=== PATIENT | male | born 1980 | race Hispanic/Latino ===

== ENCOUNTER 2017-03-24 14:30 | Observation (INO) | payer OTHER ==
[2017-03-24] MEDS ORDERED: Sodium Chloride 0.9% 1,000 ML IV STA (15:10)
[2017-03-24] MEDS ORDERED: Naloxone 0.4 mg/ml Inj (Adult) IVP STA ×3 (15:10→18:05)
[2017-03-24] MEDS ORDERED: Naloxone 0.4 mg/ml Inj (Adult) IM STA (15:13)
[2017-03-24 15:52] LABS: ALCOHOL SERUM < 10 mg/dl (0-10); BLOOD UREA NITROGEN 24 mg/dl (9-20); CALCIUM 9.3 mg/dL (8.4-10.2); CARBON DIOXIDE 27 mmol/L (22-30); CHLORIDE 103 mmol/L (98-107); GFR AFRICAN-AMERICAN > 60; GLUCOSE,RANDOM 106 mg/dL (75-110); POTASSIUM 4.5 MMOL/L (3.6-5.0); SODIUM 142 mmol/l (132-148)
--- NOTE | 2017-03-24 15:53 | ED PDOC ---
HPI: Seizure <Geraldo Wiggins F - Last Filed: 03/24/17 18:58> Chief Complaint (Provider): Seizure History Per: Patient, Family History/Exam Limitations: no limitations Recent Seizure Activity Began: Just Before Arrival Number Of Seizures: One Length Of Seizures (Duration): Unknown Quality Of Seizure: Generalized Precipitating Factor(s): Decreased Sleep Post-ictal Period: No <Alonzo Rea - Last Filed: 03/24/17 19:03> Time Seen by Provider: 03/24/17 14:53 Chief Complaint (Nursing): Seizure Additional Complaint(s): Patient is a 36 year old male brought to ED by mother for possible seizure activity this morning. As per patient, he does not remember episodes but notes increased stress which may have caused the seizure. Patient is extremely drowsy in ED, falling asleep during exam. (Alonzo Rea) Past Medical History <Geraldo Wiggins F - Last Filed: 03/24/17 18:58> Reviewed: Historical Data, Nursing Documentation, Vital Signs - Medical History PMH: Anxiety, Asthma, Back Problems, Bipolar Disorder, Depression, Seizures Denies: Diabetes, Hepatitis, HIV, HTN, Chronic Kidney Disease, Sexually Transmitted Disease - Surgical History Surgical History: No Surg Hx - Family History Family History: States: No Known Family Hx - Living Arrangements Living Arrangements: With Family - Immunization History Hx Tetanus Toxoid Vaccination: No Hx Influenza Vaccination: No Hx Pneumococcal Vaccination: No <Alonzo Rea - Last Filed: 03/24/17 19:03> Vital Signs: Last Vital Signs Temp 98.3 F 03/24/17 18:38 Pulse 89 03/24/17 18:38 Resp 18 03/24/17 18:38 BP 117/70 03/24/17 18:38 Pulse Ox 89 L 03/24/17 18:59 - Home Medications Home Medications: Ambulatory Orders Medication Instructions Recorded Albuterol HFA [Ventolin HFA 90 2 puff IH Q4H PRN 03/15/17 mcg/actuation (8 g)] Gabapentin [Neurontin] 800 mg PO TID 03/15/17 Methylphenidate HCl [Concerta] 36 mg PO DAILY 03/15/17 Naproxen [Anaprox DS] 550 mg PO BID PRN 03/15/17 Zolpidem [Ambien] 10 mg PO HS 03/15/17 cloNIDine [Catapres] 0.2 mg PO DAILY 03/15/17 Buprenorphine HCl/Naloxone HCl 1 film SL BID 03/24/17 [Suboxone 8 mg-2 mg Sl Film] Divalproex [Depakote ER] 500 mg PO TID 03/24/17 - Allergies Allergies/Adverse Reactions: Allergies Allergy/AdvReac Type Severity Reaction Status Date / Time levetiracetam [From [facility]] Allergy RASH Verified 03/15/17 07:52 Penicillins Allergy RASH Verified 03/15/17 07:52 tramadol Allergy RASH Verified 03/15/17 07:52 Review of Systems ROS Statement: Except As Marked, All Systems Reviewed And Found Negative Eyes: Negative for: Vision Change Cardiovascular: Negative for: Chest Pain Respiratory: Negative for: Shortness of Breath Gastrointestinal: Negative for: Nausea, Vomiting Musculoskeletal: Negative for: Neck Pain, Back Pain Neurological: Positive for: Seizures <Alonzo Rea - Last Filed: 03/24/17 19:03> Physical Exam - Reviewed Nursing Documentation Reviewed: Yes Vital Signs Reviewed: Yes - Physical Exam Appears: Positive for: Non-toxic (drowsy), No Acute Distress Head Exam: Positive for: ATRAUMATIC, NORMAL INSPECTION Skin: Positive for: Normal Color, Warm Eye Exam: Negative for: Normal appearance (Pin point pupils ) Neck: Positive for: Normal, Painless ROM Cardiovascular/Chest: Positive for: Regular Rate, Rhythm. Negative for: Murmur Respiratory: Positive for: Normal Breath Sounds. Negative for: Respiratory Distress Back: Positive for: Normal Inspection Extremity: Positive for: Normal ROM Neurologic/Psych: Positive for: Alert, Oriented <Alonzo Rea - Last Filed: 03/24/17 19:03> - Laboratory Results Result Diagrams: 03/24/17 15:20 03/24/17 15:20 <Geraldo Wiggins - Last Filed: 03/24/17 18:58> - Laboratory Results Result Diagrams: 03/24/17 15:20 03/24/17 15:20 - ECG O2 Sat by Pulse Oximetry: 89 (RA) Pulse Ox Interpretation: Abnormal <Alonzo Rea - Last Filed: 03/24/17 19:03> - Progress ED Course And Treament: 18:00 Upon provider reevaluation, patient is continuing to nod off and has become hypoxic with a saturation in the low 90's requiring O2. Patient has subtherapeutic depakote. Pupils are constricting, patient admits to medicating with 2 pills of roxycodone and 2 pills of methadone. Patient will be admitted for polysubstance abuse, discussed with Dr. Estrada who will be accepting the patient. Family of the patient expressed concern of patient's elopement risk claiming he will try to leave the hospital prompting 1:1 observation. (Alonzo Rea) Disposition <Geraldo Wiggins - Last Filed: 03/24/17 18:58> - Patient ED Disposition Is Patient to be Admitted: Yes - Disposition Disposition Time: 18:00 <Alonzo Rea - Last Filed: 03/24/17 19:03> - Clinical Impression Clinical Impression: Seizure disorder, Drug abuse - Disposition Condition: STABLE
[2017-03-24 16:01] LABS: BASO % 0.2 % (0.0-2.0); EOS % 0.1 % (0.0-4.0); HEMATOCRIT 35.6 % (35.0-51.0); LYMPH # 1.6 K/uL (1.0-4.3); LYMPH % 9.4 % (20.0-40.0); MEAN CELL VOLUME 89.8 fl (80.0-94.0); MEAN CORPUSCULAR HEMOGLOBIN 30.6 pg (27.0-31.0); MEAN PLATELET VOLUME 7.7 fl (7.2-11.7); MONO # 0.9 K/uL (0.0-0.8); MONO % 5.1 % (0.0-10.0); NEUT # 14.3 K/uL (1.8-7.0); NEUT % 85.2 % (50.0-75.0); PLATELET COUNT 458 K/uL (130-400); RED CELL DISTRIBUTION WIDTH 12.9 % (11.5-14.5); WHITE BLOOD COUNT 16.8 K/uL (4.8-10.8)
[2017-03-24 16:03] LABS: CARBAMAZEPINE < 3.0 ug/mL (4.0-12.0)
[2017-03-24 16:05] LABS: VALPROIC ACID 44.4 ug/mL (50.0-100.0)
--- NOTE | 2017-03-24 16:30 | RAD ---
PROCEDURE: CHEST RADIOGRAPH, 1 VIEW HISTORY: seizure COMPARISON: 03/15/2017 FINDINGS: LUNGS: The lungs are well inflated and clear. PLEURA: No pneumothorax or pleural fluid seen. CARDIOVASCULAR: Normal. OSSEOUS STRUCTURES: No significant abnormalities. VISUALIZED UPPER ABDOMEN: Normal. OTHER FINDINGS: None. IMPRESSION: No active pulmonary disease.
[2017-03-24 17:03] LABS: RBC URINE < 1 /hpf (0-3); URINE BILIRUBIN NEGATIVE (NEGATIVE); URINE BLOOD NEGATIVE (NEGATIVE); URINE COLOR YELLOW (YELLOW); URINE GLUCOSE (UA) NEG (Normal); URINE KETONE TRACE mg/dL (NEGATIVE); URINE LEUKOCYTE ESTERASE NEG Leu/uL (Negative); URINE PROTEIN NEGATIVE (NEGATIVE); URINE UROBILINOGEN 0.2-1.0 mg/dL (0.2-1.0); WBC URINE 1 /hpf (0-5)
[2017-03-24] MEDS ORDERED: Valproate 500 MG in Sodium Chloride 0.9% 100 ML IVPB ONE (18:05)
[2017-03-24] MEDS ORDERED: Naloxone 0.4 mg/ml Inj (Adult) ONE (18:06)
[2017-03-24 18:17] LABS: NEUTROPHIL 81 % (42-75); TOTAL CELLS COUNTED 100
--- NOTE | 2017-03-24 18:51 | CT ---
PROCEDURE: CT HEAD WITHOUT CONTRAST. HISTORY: seizure COMPARISON: 11/18/2016 TECHNIQUE: Axial computed tomography images were obtained through the head/brain without intravenous contrast. Radiation dose: Total exam DLP = 898 mGy-cm. This CT exam was performed using one or more of the following dose reduction techniques: Automated exposure control, adjustment of the mA and/or kV according to patient size, and/or use of iterative reconstruction technique. FINDINGS: HEMORRHAGE: No intracranial hemorrhage. BRAIN: No mass effect or edema. No atrophy or chronic microvascular ischemic changes. VENTRICLES: Unremarkable. No hydrocephalus. CALVARIUM: Unremarkable. PARANASAL SINUSES: Partial opacification of the right-sided ethmoid air cells MASTOID AIR CELLS: Unremarkable as visualized. No inflammatory changes. OTHER FINDINGS: None. IMPRESSION: Normal CT of the Head.
[2017-03-24] MEDS ORDERED: Dextrose 5%/0.45% NS 1,000 ML IV SCH (21:30)
--- NOTE | 2017-03-25 07:00 | CP.PCM.HP ---
<ChongNicole clark - Last Filed: 03/28/17 06:21> History of Present Illness - History of Present Illness History of Present Illness: CC: Lethargy, possible unwitnessed seizure 36M admitted last night, seen and examined at the bedside this morning with attending. Records for this admission reviewed as well since patient cannot recall all events. 36M reports that yesterday he was in his usual state of health, engaging in his usual drug use which he reports he "has a schedule that he follows so he doesn' t overdose". He denies he took the drugs with any intent to cause self harm though it was clearly explained to him the danger with his seizure disorder. He said that after taking the drugs he was fine but then woke up on the floor, face down, and then got up and called his mother who brought him in. Present on Admission - Present on Admission Any Indicators Present on Admission: No History of DVT/PE: No History of Uncontrolled Diabetes: No Urinary Catheter: No Decubitus Ulcer Present: No Review of Systems - Review of Systems All systems: reviewed and no additional remarkable complaints except - Constitutional Constitutional: Lethargy Past Patient History - Infectious Disease Hx of Infectious Diseases: None - Past Medical History & Family History Past Medical History?: Yes - Past Social History Smoking Status: Former Smoker - CARDIAC Hx Hypertension: No - PULMONARY Hx Asthma: Yes - NEUROLOGICAL Hx Seizures: Yes - HEENT Hx HEENT Problems: No - RENAL Hx Chronic Kidney Disease: No - ENDOCRINE/METABOLIC Hx Endocrine Disorders: No - HEMATOLOGICAL/ONCOLOGICAL Hx Human Immunodeficiency Virus (HIV): No - INTEGUMENTARY Hx Dermatological Problems: No - MUSCULOSKELETAL/RHEUMATOLOGICAL Hx Falls: No - GASTROINTESTINAL Hx Gastrointestinal Disorders: No - GENITOURINARY/GYNECOLOGICAL Hx Sexually Transmitted Disorders: No - PSYCHIATRIC Hx Anxiety: Yes Hx Bipolar Disorder: Yes Hx Depression: Yes Hx Substance Use: Yes (multi drug abuser) - SURGICAL HISTORY Hx Surgeries: No - ANESTHESIA Hx Anesthesia: No Meds Allergies/Adverse Reactions: Allergies Allergy/AdvReac Type Severity Reaction Status Date / Time levetiracetam [From [facility]] Allergy RASH Verified 03/15/17 07:52 Penicillins Allergy RASH Verified 03/15/17 07:52 tramadol Allergy RASH Verified 03/15/17 07:52 Physical Exam - Constitutional Appears: Non-toxic, No Acute Distress - Head Exam Head Exam: ATRAUMATIC, NORMAL INSPECTION - Eye Exam Eye Exam: EOMI, PERRL - ENT Exam ENT Exam: Mucous Membranes Moist, Normal Exam - Neck Exam Neck exam: Positive for: Full Rom, Normal Inspection - Respiratory Exam Respiratory Exam: Clear to Auscultation Bilateral, NORMAL BREATHING PATTERN. absent: Rales, Wheezes - Cardiovascular Exam Cardiovascular Exam: REGULAR RHYTHM. absent: JVD - GI/Abdominal Exam GI & Abdominal Exam: Normal Bowel Sounds, Soft. absent: Tenderness - Extremities Exam Extremities exam: Positive for: normal capillary refill, pedal pulses present. Negative for: pedal edema - Neurological Exam Neurological exam: Alert - Psychiatric Exam Psychiatric exam: Anxious, Normal Mood - Skin Skin Exam: Diaphoretic, Warm Results - Vital Signs Recent Vital Signs: Last Vital Signs Temp 36.4 C 03/25/17 05:23 Pulse 68 03/25/17 05:23 Resp 18 03/25/17 05:23 BP 103/64 03/25/17 05:23 Pulse Ox 93 L 03/25/17 05:23 - Labs Result Diagrams: 03/25/17 05:50 03/25/17 05:50 Assessment & Plan (1) Drug abuse Assessment and Plan: Acute on chronic drug use with suspected overdose vs. unwitnessed seizure activity. UA positive for patient's chronic use of drugs(review of prior records ). CK mildly elevated without electrolyte derangements. - Hydration - Supplemental Oxygen - Counseled on risks associated with current seizure disorder as well as health in general - Offered [facility] [place] Status: Acute (2) DVT prophylaxis Assessment and Plan: SCDs b/l continuous Status: Acute (3) Seizure disorder Assessment and Plan: Acute? on chronic as initial Depakote level was low, but then on repeat wnl. Possible effect of drugs he took. However, no seizure activity noted while at the hospital. - c/w home medication - seizure protocol Status: Chronic <Trey Estrada - Last Filed: 03/29/17 00:37> Results - Vital Signs Recent Vital Signs: Last Vital Signs Temp 98.4 F 03/25/17 07:53 Pulse 74 03/25/17 07:53 Resp 16 03/25/17 07:53 BP 126/81 03/25/17 07:53 Pulse Ox 96 03/25/17 07:53 - Labs Result Diagrams: 03/25/17 05:50 03/25/17 05:50 Assessment & Plan - Assessment and Plan (Free Text) Plan: I was present during evalkaution and personally examined patient. Discussed with Dr Sorensen re plans of care and mgt. Trey Estrada M.D/.
[2017-03-25 07:22] LABS: BASO % 0.2 % (0.0-2.0); EOS # 0.2 K/uL (0.0-0.7); EOS % 2.6 % (0.0-4.0); HEMATOCRIT 32.5 % (35.0-51.0); LYMPH % 46.5 % (20.0-40.0); MEAN CELL VOLUME 91.1 fl (80.0-94.0); MEAN CORPUSCULAR HEMOGLOBIN 29.9 pg (27.0-31.0); MEAN CORPUSCULAR HGB CONC 32.8 g/dL (33.0-37.0); MEAN PLATELET VOLUME 7.6 fl (7.2-11.7); MONO # 0.7 K/uL (0.0-0.8); MONO % 7.6 % (0.0-10.0); NEUT # 3.7 K/uL (1.8-7.0); NEUT % 43.1 % (50.0-75.0); RED CELL DISTRIBUTION WIDTH 13.4 % (11.5-14.5); WHITE BLOOD COUNT 8.6 K/uL (4.8-10.8)
[2017-03-25 07:37] LABS: ALKALINE PHOSPHATASE 66 U/L (38-126); ALT/SGPT 31 U/L (21-72); AST/SGOT 69 U/L (17-59); BILIRUBIN,TOTAL 0.1 mg/dl (0.2-1.3); BLOOD UREA NITROGEN 12 mg/dl (9-20); CALCIUM 8.8 mg/dL (8.4-10.2); CARBON DIOXIDE 31 mmol/L (22-30); CHLORIDE 101 mmol/L (98-107); GFR AFRICAN-AMERICAN > 60; GLUCOSE,RANDOM 94 mg/dL (75-110); POTASSIUM 4.2 MMOL/L (3.6-5.0); SODIUM 135 mmol/l (132-148); TOTAL PROTEIN 6.5 G/DL (6.3-8.2)
[2017-03-25 07:53] VITALS: BP 126/81; PULSE 74; RESP 16; TEMP 98.4; O2SAT 96
--- NOTE | 2017-03-25 08:33 | CARD ---
APPROVED REPORT EKG Measurement Heart [id number] <Conclusion> Sinus tachycardia Otherwise normal ECG
--- NOTE | 2017-03-25 11:02 | CP.PCM.DIS ---
<ChongNicole clark - Last Filed: 03/25/17 17:33> Provider - Provider Date of Admission: 03/24/17 16:37 Attending physician: Trey Estrada MD Time Spent in preparation of Discharge (in minutes): 45 Diagnosis - Discharge Diagnosis (1) Drug abuse Status: Acute Comment: Chronic drug abuse, has been through rehabilitation programs and currently sees Dr Carroll. Utox positive for polysubstances. (3) Seizure disorder Status: Acute Comment: Chronic, initial levels below normal and then repeat this morning wnl. Patient counseled on interaction of medication for seizures with his drugs of abuse. Hospital Course - Lab Results Lab Results: Most Recent Lab Values WBC 8.6 K/uL (4.8-10.8) 03/25/17 05:50 RBC 3.57 Mil/uL (4.40-5.90) L 03/25/17 05:50 Hgb 10.7 g/dL (12.0-18.0) L 03/25/17 05:50 Hct 32.5 % (35.0-51.0) L 03/25/17 05:50 MCV 91.1 fl (80.0-94.0) 03/25/17 05:50 MCH 29.9 pg (27.0-31.0) 03/25/17 05:50 MCHC 32.8 g/dL (33.0-37.0) L 03/25/17 05:50 RDW 13.4 % (11.5-14.5) 03/25/17 05:50 Plt Count 381 K/uL (130-400) 03/25/17 05:50 MPV 7.6 fl (7.2-11.7) 03/25/17 05:50 Neut % (Auto) 43.1 % (50.0-75.0) L 03/25/17 05:50 Lymph % (Auto) 46.5 % (20.0-40.0) H 03/25/17 05:50 Angelina % (Auto) 7.6 % (0.0-10.0) 03/25/17 05:50 Eos % (Auto) 2.6 % (0.0-4.0) 03/25/17 05:50 Baso % (Auto) 0.2 % (0.0-2.0) 03/25/17 05:50 Neut # 3.7 K/uL (1.8-7.0) 03/25/17 05:50 Lymph # 4.0 K/uL (1.0-4.3) 03/25/17 05:50 Angelina # 0.7 K/uL (0.0-0.8) 03/25/17 05:50 Eos # 0.2 K/uL (0.0-0.7) 03/25/17 05:50 Baso # 0.0 K/uL (0.0-0.2) 03/25/17 05:50 Neutrophils % (Manual) 81 % (42-75) H 03/24/17 15:20 Band Neutrophils % 1 % (0-2) 03/24/17 15:20 Lymphocytes % (Manual) 12 % (20-50) L 03/24/17 15:20 Monocytes % (Manual) 6 % (0-10) 03/24/17 15:20 Toxic Granulation Present 03/24/17 15:20 Platelet Estimate Slightly increased (NORMAL) H 03/24/17 15:20 Hypochromasia (manual) Slight 03/24/17 15:20 Anisocytosis (manual) Slight 03/24/17 15:20 Sodium 135 mmol/l (132-148) 03/25/17 05:50 Potassium 4.2 MMOL/L (3.6-5.0) 03/25/17 05:50 Chloride 101 mmol/L (98-107) 03/25/17 05:50 Carbon Dioxide 31 mmol/L (22-30) H 03/25/17 05:50 Anion Gap 7 (10-20) L 03/25/17 05:50 BUN 12 mg/dl (9-20) 03/25/17 05:50 Creatinine 0.6 mg/dL (0.8-1.5) L 03/25/17 05:50 Est GFR ( Amer) > 60 03/25/17 05:50 Est GFR (Non-Af Amer) > 60 03/25/17 05:50 POC Glucose (mg/dL) 113 mg/dL (65-110) H 03/24/17 14:38 Random Glucose 94 mg/dL (75-110) 03/25/17 05:50 Calcium 8.8 mg/dL (8.4-10.2) 03/25/17 05:50 Total Bilirubin 0.1 mg/dl (0.2-1.3) L 03/25/17 05:50 AST 69 U/L (17-59) H D 03/25/17 05:50 ALT 31 U/L (21-72) 03/25/17 05:50 Alkaline Phosphatase 66 U/L (38-126) 03/25/17 05:50 Total Creatine Kinase 197 U/L (55-170) H 03/24/17 15:20 Total Protein 6.5 G/DL (6.3-8.2) 03/25/17 05:50 Albumin 3.3 g/dL (3.5-5.0) L D 03/25/17 05:50 Globulin 3.2 gm/dL (2.2-3.9) 03/25/17 05:50 Albumin/Globulin Ratio 1.0 (1.0-2.1) 03/25/17 05:50 Urine Color Yellow (YELLOW) 03/24/17 16:15 Urine Clarity Clear (Clear) 03/24/17 16:15 Urine pH 6.0 (5.0-8.0) 03/24/17 16:15 Ur Specific Grimes 1.026 (1.003-1.030) 03/24/17 16:15 Urine Protein Negative mg/dL (NEGATIVE) 03/24/17 16:15 Urine Glucose (UA) Neg mg/dL (Normal) 03/24/17 16:15 Urine Ketones Trace mg/dL (NEGATIVE) 03/24/17 16:15 Urine Blood Negative (NEGATIVE) 03/24/17 16:15 Urine Nitrate Negative (NEGATIVE) 03/24/17 16:15 Urine Bilirubin Negative (NEGATIVE) 03/24/17 16:15 Urine Urobilinogen 0.2-1.0 mg/dL (0.2-1.0) 03/24/17 16:15 Ur Leukocyte Esterase Neg Juancarlos/uL (Negative) 03/24/17 16:15 Urine RBC (Auto) < 1 /hpf (0-3) 03/24/17 16:15 Urine Microscopic WBC 1 /hpf (0-5) 03/24/17 16:15 Urine Opiates Screen Negative (NEGATIVE) 03/24/17 16:15 Urine Methadone Screen Positive (NEGATIVE) H 04/27/17 16:15 Ur Barbiturates Screen Negative (NEGATIVE) 03/24/17 16:15 Phenytoin < 3.0 ug/ML (10-20) L 03/24/17 15:20 Valproic Acid 58.4 ug/mL (50.0-100.0) 03/25/17 05:50 Carbamazepine < 3.0 ug/mL (4.0-12.0) L 03/24/17 15:20 Ur Phencyclidine Scrn Negative (NEGATIVE) 03/24/17 16:15 Ur Amphetamines Screen Negative (NEGATIVE) 03/24/17 16:15 U Benzodiazepines Scrn Positive (NEGATIVE) H 03/24/17 16:15 U Oth Cocaine Metabols Negative (NEGATIVE) 03/24/17 16:15 U Cannabinoids Screen Positive (NEGATIVE) H 03/24/17 16:15 Alcohol, Quantitative < 10 mg/dl (0-10) 03/24/17 15:20 - Hospital Course Hospital Course: Patient seen and examined at bedside with attending. Patient denies any thoughts to hurt himself. 36M admitted for drug overdose with polysubstances that may have been led to occult seizure though this is not well-substantiated. Currently he is in full use of all his faculties, declining psychiatry evaluation because he has scheduled appointment today with intervention with his parents (whom he lives with). Patient is cleared for discharge to his parents who were contacted and will pick patient up and will be pursuing intervention today. Discharge Exam - Head Exam Head Exam: ATRAUMATIC, NORMAL INSPECTION Additional comments: diaphoretic - Eye Exam Eye Exam: EOMI, PERRL - ENT Exam ENT Exam: Mucous Membranes Moist, Normal Exam - Neck Exam Neck exam: Full Rom, Normal Inspection - Respiratory Exam Respiratory Exam: Clear to PA & Lateral, NORMAL BREATHING PATTERN. absent: Rales, Wheezes - Cardiovascular Exam Cardiovascular Exam: REGULAR RHYTHM. absent: JVD - GI/Abdominal Exam GI & Abdominal Exam: Normal Bowel Sounds, Soft. absent: Tenderness - Extremities Exam Extremities exam: full ROM, normal capillary refill, pedal pulses present - Neurological Exam Neurological exam: Alert, Oriented x3 - Psychiatric Exam Psychiatric exam: Anxious, Normal Mood - Skin Skin Exam: Normal Color, Warm Discharge Plan - Follow Up Plan Condition: STABLE Disposition: HOME/ ROUTINE Patient education suggested?: Yes Instructions: Recurrent Seizures in Adults (DC) Additional Instructions: I was present during evaluation and discussed with Dr Sorensen re discharge plans. Trey Estrada M.D. <Trey Estrada - Last Filed: 03/29/17 00:38> Provider - Provider Date of Admission: 03/24/17 16:37 Attending physician: Trey Estrada MD Hospital Course - Lab Results Lab Results: Most Recent Lab Values WBC 8.6 K/uL (4.8-10.8) 03/25/17 05:50 RBC 3.57 Mil/uL (4.40-5.90) L 03/25/17 05:50 Hgb 10.7 g/dL (12.0-18.0) L 03/25/17 05:50 Hct 32.5 % (35.0-51.0) L 03/25/17 05:50 MCV 91.1 fl (80.0-94.0) 03/25/17 05:50 MCH 29.9 pg (27.0-31.0) 03/25/17 05:50 MCHC 32.8 g/dL (33.0-37.0) L 03/25/17 05:50 RDW 13.4 % (11.5-14.5) 03/25/17 05:50 Plt Count 381 K/uL (130-400) 03/25/17 05:50 MPV 7.6 fl (7.2-11.7) 03/25/17 05:50 Neut % (Auto) 43.1 % (50.0-75.0) L 03/25/17 05:50 Lymph % (Auto) 46.5 % (20.0-40.0) H 03/25/17 05:50 Angelina % (Auto) 7.6 % (0.0-10.0) 03/25/17 05:50 Eos % (Auto) 2.6 % (0.0-4.0) 03/25/17 05:50 Baso % (Auto) 0.2 % (0.0-2.0) 03/25/17 05:50 Neut # 3.7 K/uL (1.8-7.0) 03/25/17 05:50 Lymph # 4.0 K/uL (1.0-4.3) 03/25/17 05:50 Angelina # 0.7 K/uL (0.0-0.8) 03/25/17 05:50 Eos # 0.2 K/uL (0.0-0.7) 03/25/17 05:50 Baso # 0.0 K/uL (0.0-0.2) 03/25/17 05:50 Neutrophils % (Manual) 81 % (42-75) H 03/24/17 15:20 Band Neutrophils % 1 % (0-2) 03/24/17 15:20 Lymphocytes % (Manual) 12 % (20-50) L 03/24/17 15:20 Monocytes % (Manual) 6 % (0-10) 03/24/17 15:20 Toxic Granulation Present 03/24/17 15:20 Platelet Estimate Slightly increased (NORMAL) H 03/24/17 15:20 Hypochromasia (manual) Slight 03/24/17 15:20 Anisocytosis (manual) Slight 03/24/17 15:20 Sodium 135 mmol/l (132-148) 03/25/17 05:50 Potassium 4.2 MMOL/L (3.6-5.0) 03/25/17 05:50 Chloride 101 mmol/L (98-107) 03/25/17 05:50 Carbon Dioxide 31 mmol/L (22-30) H 03/25/17 05:50 Anion Gap 7 (10-20) L 03/25/17 05:50 BUN 12 mg/dl (9-20) 03/25/17 05:50 Creatinine 0.6 mg/dL (0.8-1.5) L 03/25/17 05:50 Est GFR ( Amer) > 60 03/25/17 05:50 Est GFR (Non-Af Amer) > 60 03/25/17 05:50 POC Glucose (mg/dL) 113 mg/dL (65-110) H 03/24/17 14:38 Random Glucose 94 mg/dL (75-110) 03/25/17 05:50 Calcium 8.8 mg/dL (8.4-10.2) 03/25/17 05:50 Total Bilirubin 0.1 mg/dl (0.2-1.3) L 03/25/17 05:50 AST 69 U/L (17-59) H D 03/25/17 05:50 ALT 31 U/L (21-72) 03/25/17 05:50 Alkaline Phosphatase 66 U/L (38-126) 03/25/17 05:50 Total Creatine Kinase 197 U/L (55-170) H 03/24/17 15:20 Total Protein 6.5 G/DL (6.3-8.2) 03/25/17 05:50 Albumin 3.3 g/dL (3.5-5.0) L D 03/25/17 05:50 Globulin 3.2 gm/dL (2.2-3.9) 03/25/17 05:50 Albumin/Globulin Ratio 1.0 (1.0-2.1) 03/25/17 05:50 Urine Color Yellow (YELLOW) 03/24/17 16:15 Urine Clarity Clear (Clear) 03/24/17 16:15 Urine pH 6.0 (5.0-8.0) 03/24/17 16:15 Ur Specific Grimes 1.026 (1.003-1.030) 03/24/17 16:15 Urine Protein Negative mg/dL (NEGATIVE) 03/24/17 16:15 Urine Glucose (UA) Neg mg/dL (Normal) 03/24/17 16:15 Urine Ketones Trace mg/dL (NEGATIVE) 03/24/17 16:15 Urine Blood Negative (NEGATIVE) 03/24/17 16:15 Urine Nitrate Negative (NEGATIVE) 03/24/17 16:15 Urine Bilirubin Negative (NEGATIVE) 03/24/17 16:15 Urine Urobilinogen 0.2-1.0 mg/dL (0.2-1.0) 03/24/17 16:15 Ur Leukocyte Esterase Neg Juancarlos/uL (Negative) 03/24/17 16:15 Urine RBC (Auto) < 1 /hpf (0-3) 03/24/17 16:15 Urine Microscopic WBC 1 /hpf (0-5) 03/24/17 16:15 Urine Opiates Screen Negative (NEGATIVE) 03/24/17 16:15 Urine Methadone Screen Positive (NEGATIVE) H 03/24/17 16:15 Ur Barbiturates Screen Negative (NEGATIVE) 03/24/17 16:15 Phenytoin < 3.0 ug/ML (10-20) L 03/24/17 15:20 Valproic Acid 58.4 ug/mL (50.0-100.0) 03/25/17 05:50 Carbamazepine < 3.0 ug/mL (4.0-12.0) L 03/24/17 15:20 Ur Phencyclidine Scrn Negative (NEGATIVE) 03/24/17 16:15 Ur Amphetamines Screen Negative (NEGATIVE) 03/24/17 16:15 U Benzodiazepines Scrn Positive (NEGATIVE) H 03/24/17 16:15 U Oth Cocaine Metabols Negative (NEGATIVE) 03/24/17 16:15 U Cannabinoids Screen Positive (NEGATIVE) H 03/24/17 16:15 Alcohol, Quantitative < 10 mg/dl (0-10) 03/24/17 15:20
== END 2017-03-25 12:15 | disposition home or self-care (01) ==
LOC: H.ER 14:30 → H.EROBSV 16:37 → H.ERHOLD 18:28 → H.TEL 20:54
PROVIDERS: ADMIT Family Medicine; ATTEND Family Medicine
DX: F19.10 Other psychoactive substance abuse, uncomplicated (principal); G40.909 Epilepsy, unspecified, not intractable, without status epilepticus; J45.909 Unspecified asthma, uncomplicated; F31.9 Bipolar disorder, unspecified; R09.02 Hypoxemia; F41.9 Anxiety disorder, unspecified; Z88.6 Allergy status to analgesic agent; Z88.0 Allergy status to penicillin

== ENCOUNTER 2017-03-30 22:17 | Emergency (ER) | payer OTHER ==
[2017-03-30 22:23] VITALS: BP 143/59; RESP 98; TEMP 98.6; O2SAT 100
--- NOTE | 2017-03-30 23:24 | ED PDOC ---
HPI: Psych/Substance Abuse Time Seen by Provider: 03/30/17 22:28 Chief Complaint (Nursing): Substance Abuse Chief Complaint (Provider): Heroin abuse History Per: Patient, Family, Other (Friend) History/Exam Limitations: no limitations Modifying Factor(s): Narcotics Additional Complaint(s): Pt BIBA after father and brother called 911 due to finding pt passed out/asleep in garage. Pt admits to heroin use @ 2 PM today. Pt without active complaints. Past Medical History Reviewed: Nursing Documentation, Vital Signs Vital Signs: Last Vital Signs Temp 98.6 F 03/30/17 22:21 Pulse Resp 98 H 03/30/17 22:21 BP 143/59 L 03/30/17 22:21 Pulse Ox 100 03/30/17 22:21 - Medical History PMH: Anxiety, Asthma, Back Problems, Bipolar Disorder, Depression, Seizures Denies: Diabetes, Hepatitis, HIV, HTN, Chronic Kidney Disease, Sexually Transmitted Disease - Family History Family History: States: Unknown Family Hx - Living Arrangements Living Arrangements: With Family - Social History Drugs: Opiates - Immunization History Hx Tetanus Toxoid Vaccination: No Hx Influenza Vaccination: No Hx Pneumococcal Vaccination: No - Home Medications Home Medications: Ambulatory Orders Medication Instructions Recorded Albuterol HFA [Ventolin HFA 90 2 puff IH Q4H PRN 03/15/17 mcg/actuation (8 g)] Gabapentin [Neurontin] 800 mg PO TID 03/15/17 Methylphenidate HCl [Concerta] 36 mg PO DAILY 03/15/17 Naproxen [Anaprox DS] 550 mg PO BID PRN 03/15/17 Zolpidem [Ambien] 10 mg PO HS 03/15/17 cloNIDine [Catapres] 0.2 mg PO DAILY 03/15/17 Buprenorphine HCl/Naloxone HCl 1 film SL BID 03/24/17 [Suboxone 8 mg-2 mg Sl Film] Divalproex [Depakote ER] 500 mg PO TID 03/24/17 - Allergies Allergies/Adverse Reactions: Allergies Allergy/AdvReac Type Severity Reaction Status Date / Time levetiracetam [From [facility]] Allergy RASH Verified 04/01/17 10:35 Penicillins Allergy RASH Verified 04/01/17 10:35 tramadol Allergy RASH Verified 04/01/17 10:35 Review of Systems Review Of Systems: ROS cannot be obtained secondary to pt's inabilty to answer questions. Physical Exam - Reviewed Nursing Documentation Reviewed: Yes Vital Signs Reviewed: Yes - Physical Exam Appears: Positive for: Well, No Acute Distress Head Exam: Positive for: ATRAUMATIC, NORMAL INSPECTION Skin: Positive for: Normal Color, Warm, Dry Eye Exam: Positive for: Normal appearance, EOMI, PERRL Neck: Positive for: Supple Respiratory: Positive for: Normal Breath Sounds. Negative for: Rales, Rhonchi, Wheezing Gastrointestinal/Abdominal: Positive for: Normal Exam, Bowel Sounds, Soft. Negative for: Tenderness Extremity: Positive for: Normal ROM Neurologic/Psych: Positive for: Alert, television program director II-XII, Oriented. Negative for: Motor/Sensory Deficits, Facial Droop - Laboratory Results Result Diagrams: 03/30/17 23:27 03/30/17 23:27 - ECG Interpretation Of ECG: NSR @ 94, no ST-T changes. O2 Sat by Pulse Oximetry: 100 Pulse Ox Interpretation: Normal Medical Decision Making Medical Decision Makin yo male with opioid abuse. - labs - EKG - CXR - Crisis evaluation Disposition - Clinical Impression Clinical Impression: Opiate abuse, continuous - Disposition Disposition: Transfer of Care Disposition Time: 00:00 Condition: STABLE Instructions: Narcotic Abuse (ED) Patient Signed Over To: Benton Metz
[2017-03-30 23:31] LABS: BASO # 0.1 K/uL (0.0-0.2); BASO % 0.8 % (0.0-2.0); EOS # 0.3 K/uL (0.0-0.7); EOS % 3.1 % (0.0-4.0); HEMATOCRIT 39.1 % (35.0-51.0); LYMPH # 2.6 K/uL (1.0-4.3); MEAN CELL VOLUME 89.8 fl (80.0-94.0); MEAN CORPUSCULAR HGB CONC 33.4 g/dL (33.0-37.0); MONO # 0.9 K/uL (0.0-0.8); MONO % 8.7 % (0.0-10.0); NEUT # 6.2 K/uL (1.8-7.0); NEUT % 61.4 % (50.0-75.0); RED CELL DISTRIBUTION WIDTH 13.2 % (11.5-14.5); WHITE BLOOD COUNT 10.1 K/uL (4.8-10.8)
[2017-03-30 23:44] LABS: ALB/GLOB RATIO 1.1 (1.0-2.1); ALCOHOL SERUM < 10 mg/dl (0-10); ALKALINE PHOSPHATASE 93 U/L (38-126); ALT/SGPT 33 U/L (21-72); AST/SGOT 50 U/L (17-59); BILIRUBIN,TOTAL 0.5 mg/dl (0.2-1.3); BLOOD UREA NITROGEN 17 mg/dl (9-20); CARBON DIOXIDE 28 mmol/L (22-30); CHLORIDE 102 mmol/L (98-107); GFR AFRICAN-AMERICAN > 60; GLUCOSE,RANDOM 97 mg/dL (75-110); POTASSIUM 4.1 MMOL/L (3.6-5.0); SODIUM 142 mmol/l (132-148); TOTAL PROTEIN 8.5 G/DL (6.3-8.2)
[2017-03-30 23:46] LABS: VALPROIC ACID 83.1 ug/mL (50.0-100.0)
--- NOTE | 2017-03-31 01:59 | ED PDOC ---
- Laboratory Results Result Diagrams: 03/30/17 23:27 03/30/17 23:27 - ECG O2 Sat by Pulse Oximetry: 100 Medical Decision Making Medical Decision Making: Patient signed out from Dr. Mccann at 0000 pending crisis evaluation. 0207: Patient was evaluated by crisis and who has discussed the case with the patient's psychiatrist Dr Ma. Patient found to be stable for discharge. Dx: Opiate abuse Condition: stable Scribe Attestation Documented by Marni ascencio under Eligio Palomo acting as a scribe for Isaías Kaiser MD. Provider Attestation: All medical record entries made by the Scribe were at my direction and personally dictated by me. I have reviewed the chart and agree that the record accurately reflects my personal performance of the history, physical exam, medical decision making, and the department course for this patient. I have also personally directed, reviewed, and agree with the discharge instructions and disposition. Disposition - Clinical Impression Clinical Impression: Opiate abuse, continuous - POA Present On Arrival: None - Disposition Disposition: Routine/Home Disposition Time: 02:07 Condition: STABLE Instructions: Narcotic Abuse (ED)
--- NOTE | 2017-03-31 08:37 | RAD ---
HISTORY: Medical clearance COMPARISON: Comparison is made to 03/24/2017 FINDINGS: LUNGS: No active pulmonary disease. PLEURA: No significant pleural effusion identified, no pneumothorax apparent. CARDIOVASCULAR: Normal. OSSEOUS STRUCTURES: No significant abnormalities. VISUALIZED UPPER ABDOMEN: Normal. OTHER FINDINGS: None. IMPRESSION: No active disease.
--- NOTE | 2017-03-31 10:08 | CARD ---
APPROVED REPORT EKG Measurement Heart [id number] <Conclusion> Normal sinus rhythm Cannot rule out Anterior infarct, age undetermined Abnormal ECG
== END 2017-03-31 02:30 | disposition home or self-care (01) ==
LOC: H.ER 22:17
DX: F11.10 Opioid abuse, uncomplicated (principal); F31.9 Bipolar disorder, unspecified

== ENCOUNTER 2017-04-01 00:55 | Emergency (ER) | payer OTHER ==
[2017-04-01 01:14] VITALS: BP 140/77; PULSE 91; RESP 18; TEMP 98.2; O2SAT 99
[2017-04-01] MEDS ORDERED: Divalproex 500 mg ER (ONCE DAILY formulation) PO STA (01:34)
--- NOTE | 2017-04-01 02:02 | ED PDOC ---
HPI: Psych/Substance Abuse Time Seen by Provider: 04/01/17 01:18 Chief Complaint (Nursing): Substance Abuse Chief Complaint (Provider): intoxication History Per: Patient History/Exam Limitations: no limitations Onset/Duration Of Symptoms: Mins Current Symptoms Are (Timing): Still Present Additional Complaint(s): 36yo male with PMHx including seizure disorder, substance abuse (snorts heroin) presents to the ED, brought in by police and EMS, for evaluation of public intoxication. Patient denies any medical or psychiatric complaints at present time. Patient was seen in this ED 24 hours ago and at that time was discharged with plan to go to detox which he failed to do. Patient intends to go to detox next Tuesday in [place] where his parents reside. Past Medical History Reviewed: Historical Data, Nursing Documentation, Vital Signs Vital Signs: Last Vital Signs Temp 98.2 F 04/01/17 01:10 Pulse 91 H 04/01/17 01:10 Resp 18 04/01/17 01:10 BP 140/77 04/01/17 01:10 Pulse Ox 99 04/01/17 01:10 - Medical History PMH: Anxiety, Asthma, Back Problems, Bipolar Disorder, Depression, Seizures Denies: Diabetes, Hepatitis, HIV, HTN, Chronic Kidney Disease, Sexually Transmitted Disease - Surgical History Surgical History: No Surg Hx - Family History Family History: States: Unknown Family Hx - Social History Current smoker - smoking cessation education provided: Yes Alcohol: None Drugs: Other (snorts heroin ) - Immunization History Hx Tetanus Toxoid Vaccination: No Hx Influenza Vaccination: No Hx Pneumococcal Vaccination: No - Home Medications Home Medications: Ambulatory Orders Medication Instructions Recorded Albuterol HFA [Ventolin HFA 90 2 puff IH Q4H PRN 03/15/17 mcg/actuation (8 g)] Gabapentin [Neurontin] 800 mg PO TID 03/15/17 Methylphenidate HCl [Concerta] 36 mg PO DAILY 03/15/17 Naproxen [Anaprox DS] 550 mg PO BID PRN 03/15/17 Zolpidem [Ambien] 10 mg PO HS 03/15/17 cloNIDine [Catapres] 0.2 mg PO DAILY 03/15/17 Buprenorphine HCl/Naloxone HCl 1 film SL BID 03/24/17 [Suboxone 8 mg-2 mg Sl Film] Divalproex [Depakote ER] 500 mg PO TID 03/24/17 - Allergies Allergies/Adverse Reactions: Allergies Allergy/AdvReac Type Severity Reaction Status Date / Time levetiracetam [From [facility]] Allergy RASH Verified 03/30/17 22:23 Penicillins Allergy RASH Verified 03/30/17 22:23 tramadol Allergy RASH Verified 03/30/17 22:23 Review of Systems ROS Statement: Except As Marked, All Systems Reviewed And Found Negative Physical Exam - Reviewed Nursing Documentation Reviewed: Yes Vital Signs Reviewed: Yes - Physical Exam Appears: Positive for: Well, No Acute Distress Head Exam: Positive for: ATRAUMATIC, NORMAL INSPECTION, NORMOCEPHALIC Skin: Positive for: Normal Color, Warm, Dry Eye Exam: Positive for: Normal appearance, EOMI, PERRL ENT: Positive for: Normal ENT Inspection Neck: Positive for: Normal, Painless ROM, Supple Cardiovascular/Chest: Positive for: Regular Rate, Rhythm. Negative for: Murmur , Tachycardia Respiratory: Positive for: Normal Breath Sounds. Negative for: Wheezing, Respiratory Distress Gastrointestinal/Abdominal: Positive for: Normal Exam, Soft. Negative for: Tenderness Back: Positive for: Normal Inspection Extremity: Positive for: Normal ROM. Negative for: Deformity, Swelling Neurologic/Psych: Positive for: Alert, Oriented, Other (speech slightly slurred ) - ECG O2 Sat by Pulse Oximetry: 99 Pulse Ox Interpretation: Normal (RA) Medical Decision Making Medical Decision Makin: Impression: 36yo intoxicated male Plan: alc serum, drug screen crisis eval Depakote 500mg PO accucheck reassess 0300: Patient evaluated by crisis and cleared for d/c. Dx: heroin abuse condition: stable Scribe Attestation: Documented by Ag Palomo acting as a scribe for Benton Metz MD. Provider Scribe Attestation: All medical record entries made by the Scribe were at my direction and personally dictated by me. I have reviewed the chart and agree that the record accurately reflects my personal performance of the history, physical exam, medical decision making, and the department course for this patient. I have also personally directed, reviewed, and agree with the discharge instructions and disposition. Disposition - Clinical Impression Clinical Impression: Opiate abuse, episodic - Patient ED Disposition Is Patient to be Admitted: No - Disposition Disposition: Routine/Home Disposition Time: 03:00 Condition: STABLE Instructions: Narcotic Abuse (ED)
== END 2017-04-01 05:05 | disposition home or self-care (01) ==
LOC: H.ER 00:55
DX: F11.10 Opioid abuse, uncomplicated (principal); F31.9 Bipolar disorder, unspecified; F41.9 Anxiety disorder, unspecified; G40.909 Epilepsy, unspecified, not intractable, without status epilepticus; J45.909 Unspecified asthma, uncomplicated; Z88.0 Allergy status to penicillin; F17.200 Nicotine dependence, unspecified, uncomplicated

== ENCOUNTER 2017-04-01 10:30 | Observation (INO) | payer OTHER ==
[2017-04-01 10:35] VITALS: TEMP 97.6
--- NOTE | 2017-04-01 10:44 | ED PDOC ---
HPI: Psych/Substance Abuse Time Seen by Provider: 04/01/17 10:35 Chief Complaint (Nursing): Substance Abuse Chief Complaint (Provider): Substance Abuse History Per: Patient, EMS, Family History/Exam Limitations: intoxication Onset/Duration Of Symptoms: Unknown Current Symptoms Are (Timing): Still Present Suicide/Self Injury Attempted (Context): None Modifying Factor(s): Other Severity: Mild Involuntary Hold By: Local Law Enforcement Additional Complaint(s): Patient is a 36 year old male who presents to ED via EMS and police for suspected heroin use. As per EMS, patients brother tried to wake him up from the cough but found it difficult. In ED patient denies heroin use, states he is just sleepy and tired. Denies SI or HI Past Medical History Reviewed: Historical Data, Nursing Documentation, Vital Signs Vital Signs: Last Vital Signs Temp 97.6 F 04/01/17 10:35 Pulse 76 04/01/17 10:35 Resp 16 04/01/17 10:35 BP 92/59 L 04/01/17 10:35 Pulse Ox 98 04/01/17 10:35 - Medical History PMH: Anxiety, Asthma, Back Problems, Bipolar Disorder, Depression, Seizures Denies: Diabetes, Hepatitis, HIV, HTN, Chronic Kidney Disease, Sexually Transmitted Disease - Surgical History Surgical History: No Surg Hx - Family History Family History: States: Unknown Family Hx - Living Arrangements Living Arrangements: With Family - Immunization History Hx Tetanus Toxoid Vaccination: No Hx Influenza Vaccination: No Hx Pneumococcal Vaccination: No - Home Medications Home Medications: Ambulatory Orders Medication Instructions Recorded Albuterol HFA [Ventolin HFA 90 2 puff IH Q4H PRN 03/15/17 mcg/actuation (8 g)] Gabapentin [Neurontin] 800 mg PO TID 03/15/17 Methylphenidate HCl [Concerta] 36 mg PO DAILY 03/15/17 Naproxen [Anaprox DS] 550 mg PO BID PRN 03/15/17 Zolpidem [Ambien] 10 mg PO HS 03/15/17 cloNIDine [Catapres] 0.2 mg PO DAILY 03/15/17 Buprenorphine HCl/Naloxone HCl 1 film SL BID 03/24/17 [Suboxone 8 mg-2 mg Sl Film] Divalproex [Depakote ER] 500 mg PO TID 03/24/17 - Allergies Allergies/Adverse Reactions: Allergies Allergy/AdvReac Type Severity Reaction Status Date / Time levetiracetam [From [facility]] Allergy RASH Verified 04/01/17 10:35 Penicillins Allergy RASH Verified 04/01/17 10:35 tramadol Allergy RASH Verified 04/01/17 10:35 Review of Systems Constitutional: Negative for: Weakness Eyes: Negative for: Vision Change Cardiovascular: Negative for: Chest Pain Respiratory: Negative for: Shortness of Breath Gastrointestinal: Negative for: Nausea, Vomiting Musculoskeletal: Negative for: Neck Pain Skin: Negative for: Rash Neurological: Negative for: Weakness Physical Exam - Reviewed Nursing Documentation Reviewed: Yes Vital Signs Reviewed: Yes - Physical Exam Appears: Positive for: Non-toxic (sleepy but arousable ) Head Exam: Positive for: ATRAUMATIC Skin: Positive for: Normal Color, Warm Eye Exam: Positive for: Normal appearance (2mm and slowly reactive ), PERRL Neck: Positive for: Normal Cardiovascular/Chest: Positive for: Regular Rate, Rhythm. Negative for: Murmur Respiratory: Positive for: Normal Breath Sounds. Negative for: Respiratory Distress Extremity: Positive for: Normal ROM Neurologic/Psych: Positive for: Alert (x3 when awake), Other (sleepy but arousable) - Laboratory Results Result Diagrams: 04/01/17 11:27 04/01/17 14:31 - ECG O2 Sat by Pulse Oximetry: 98 (RA) Pulse Ox Interpretation: Normal Medical Decision Making Medical Decision Making: Time: 1040 Initial impression: Substance abuse Initial plan: Patient with multiple ED visits for substance abuse which includes heroin -- EKG -- Alcohol serum -- UDS -- Urine dip -- CBC -- Narcan Scribe Attestation: Documented by Lisa Sanchez acting as a scribe for Geraldo Wiggins MD. Scribe Attestation: All medical record entries made by the Scribe were at my direction and personally dictated by me. I have reviewed the chart and agree that the record accurately reflects my personal performance of the history, physical exam, medical decision making, and the department course for this patient. I have also personally directed, reviewed, and agree with the discharge instructions and disposition. ED OBSERVATION Date of observation admission: 04/01/17 Time of observation admission: 11:29 - Observation admission statement Patient is being placed in observation because:: Substance abuse pending sobriety and detox placement Disposition - Clinical Impression Clinical Impression: Substance abuse - Patient ED Disposition Is Patient to be Admitted: No - Disposition Disposition: Other Institution Disposition Time: 16:15 Condition: FAIR
[2017-04-01] MEDS ORDERED: Naloxone 0.4 mg/ml Inj (Adult) IVP STA (10:47)
[2017-04-01 11:36] LABS: BASO % 0.6 % (0.0-2.0); EOS # 0.3 K/uL (0.0-0.7); EOS % 4.8 % (0.0-4.0); HEMATOCRIT 35.7 % (35.0-51.0); LYMPH # 2.9 K/uL (1.0-4.3); MEAN CELL VOLUME 88.8 fl (80.0-94.0); MEAN CORPUSCULAR HEMOGLOBIN 30.5 pg (27.0-31.0); MEAN CORPUSCULAR HGB CONC 34.4 g/dL (33.0-37.0); MEAN PLATELET VOLUME 7.2 fl (7.2-11.7); MONO # 0.5 K/uL (0.0-0.8); MONO % 8.2 % (0.0-10.0); NEUT # 2.6 K/uL (1.8-7.0); NEUT % 40.4 % (50.0-75.0); NRBC % 0.1 % (0.0-0.0); RED CELL DISTRIBUTION WIDTH 13.3 % (11.5-14.5); WHITE BLOOD COUNT 6.4 K/uL (4.8-10.8)
[2017-04-01 14:00] VITALS: RESP 18
[2017-04-01 15:10] LABS: ALKALINE PHOSPHATASE 80 U/L (38-126); ALT/SGPT 28 U/L (21-72); AST/SGOT 39 U/L (17-59); BILIRUBIN,TOTAL 0.5 mg/dl (0.2-1.3); BLOOD UREA NITROGEN 19 mg/dl (9-20); CALCIUM 9.7 mg/dL (8.4-10.2); CARBON DIOXIDE 29 mmol/L (22-30); CHLORIDE 103 mmol/L (98-107); GFR AFRICAN-AMERICAN > 60; GLUCOSE,RANDOM 108 mg/dL (75-110); POTASSIUM 3.9 MMOL/L (3.6-5.0); SODIUM 140 mmol/l (132-148); TOTAL PROTEIN 7.9 G/DL (6.3-8.2)
[2017-04-01 17:00] VITALS: BP 104/65; PULSE 71; O2SAT 100
--- NOTE | 2017-04-02 09:19 | CARD ---
APPROVED REPORT EKG Measurement Heart [id number] <Conclusion> Sinus bradycardia Otherwise normal ECG
== END 2017-04-02 17:35 | disposition home or self-care (01) ==
LOC: H.ER 10:30 → H.EROBSV 11:27
PROVIDERS: ADMIT Emergency Medicine; ATTEND Emergency Medicine
DX: F19.10 Other psychoactive substance abuse, uncomplicated (principal); F31.9 Bipolar disorder, unspecified; J45.909 Unspecified asthma, uncomplicated; Z88.0 Allergy status to penicillin

== ENCOUNTER 2017-07-27 07:05 | Emergency (ER) | payer OTHER ==
[2017-07-27 07:25] VITALS: BP 133/81; RESP 18; TEMP 98; O2SAT 98
--- NOTE | 2017-07-27 07:31 | ED PDOC ---
HPI: CCC, URI, Sore Throat Time Seen by Provider: 07/27/17 07:14 Chief Complaint (Nursing): ENT Problem Chief Complaint (Provider): ENT Problem History Per: Patient History/Exam Limitations: no limitations Onset/Duration Of Symptoms: Hrs Current Symptoms Are (Timing): Still Present Additional Complaint(s): 37 y/o male presents to the emergency department with a complaint of an irritation to the left side of the throat with dryness since he woke up this morning. Describes symptoms like "something might have went down the wrong pipe." Reports he was eating pieces of candies before bed last night. He chew them with no issues. He went to bed with no complaints. He awoke this morning and was able to swallow liquids with no issue. Denies cough, congestion, runny nose, fever, nausea, vomiting, diarrhea, dizziness, dyspnea, and chest pain. PMD: Dr. Quang Rosas MD Past Medical History Reviewed: Historical Data, Nursing Documentation, Vital Signs Vital Signs: Last Vital Signs Temp 98 F 07/27/17 07:20 Pulse 98 H 07/27/17 08:24 Resp 18 07/27/17 07:20 BP 133/81 07/27/17 07:20 Pulse Ox 98 07/27/17 08:24 - Medical History PMH: Anxiety, Asthma, Back Problems, Bipolar Disorder, Depression, Seizures Denies: Diabetes, Hepatitis, HIV, HTN, Chronic Kidney Disease, Sexually Transmitted Disease - Surgical History Surgical History: No Surg Hx - Family History Family History: States: Unknown Family Hx - Social History Current smoker - smoking cessation education provided: Yes (Light Smoker < 10 Cigarettes Daily) Alcohol: Social Drugs: Denies - Immunization History Hx Tetanus Toxoid Vaccination: No Hx Influenza Vaccination: No Hx Pneumococcal Vaccination: No - Home Medications Home Medications: Ambulatory Orders Medication Instructions Recorded Albuterol HFA [Ventolin HFA 90 2 puff IH Q4H PRN 03/15/17 mcg/actuation (8 g)] Gabapentin [Neurontin] 800 mg PO TID 03/15/17 Methylphenidate HCl [Concerta] 36 mg PO DAILY 03/15/17 Naproxen [Anaprox DS] 550 mg PO BID PRN 03/15/17 Zolpidem [Ambien] 10 mg PO HS 03/15/17 cloNIDine [Catapres] 0.2 mg PO DAILY 03/15/17 Buprenorphine HCl/Naloxone HCl 1 film SL BID 03/24/17 [Suboxone 8 mg-2 mg Sl Film] Divalproex [Depakote ER] 500 mg PO TID 03/24/17 Ibuprofen [Motrin] 600 mg PO TID 7 Days 07/27/17 - Allergies Allergies/Adverse Reactions: Allergies Allergy/AdvReac Type Severity Reaction Status Date / Time levetiracetam [From [facility]] Allergy RASH Verified 07/27/17 07:25 Penicillins Allergy RASH Verified 07/27/17 07:25 tramadol Allergy RASH Verified 07/27/17 07:25 Review of Systems Constitutional: Negative for: Fever ENT: Positive for: Throat Pain (Irritation to the left side of the throat with dryness). Negative for: Nose Discharge, Nose Congestion Cardiovascular: Negative for: Chest Pain Respiratory: Negative for: Cough Gastrointestinal: Negative for: Nausea, Vomiting, Diarrhea Musculoskeletal: Negative for: Neck Pain, Shoulder Pain Skin: Negative for: Rash Neurological: Negative for: Weakness, Dizziness Physical Exam - Reviewed Nursing Documentation Reviewed: Yes Vital Signs Reviewed: Yes - Physical Exam Appears: Positive for: Non-toxic, No Acute Distress Head Exam: Positive for: ATRAUMATIC, NORMAL INSPECTION, NORMOCEPHALIC Skin: Positive for: Normal Color, Warm, Dry ENT: Positive for: Pharynx Is (Mild erythema to the pharynx), Pharyngeal Erythema. Negative for: Normal ENT Inspection, Nasal Congestion, Tonsillar Exudate, Other (Nontender neck) Neck: Positive for: Normal, Painless ROM, Supple Cardiovascular/Chest: Positive for: Regular Rate, Rhythm. Negative for: Murmur Respiratory: Positive for: Normal Breath Sounds. Negative for: Accessory Muscle Use, Respiratory Distress Extremity: Positive for: Normal ROM. Negative for: Tenderness, Pedal Edema Neurologic/Psych: Positive for: Alert, Oriented (x3) - Laboratory Results Interpretation Of Abn Labs: strep neg - ECG O2 Sat by Pulse Oximetry: 98 (RA) Pulse Ox Interpretation: Normal - Progress ED Course And Treament: 830: Stable. AAOx3. Pain free. Tolerated PO. Strep neg. Likely sugey infection. Medical Decision Making Medical Decision Making: Time: 07:28 Initial impression: Viral infection rule out strep infection Initial plan: --Motrin 600 mg --[facility] --Reevaluation Scribe Attestation: Documented by Echo Alexander, acting as a scribe for Tremayne Anne MD. Provider Scribe Attestation: All medical record entries made by the Scribe were at my direction and personally dictated by me. I have reviewed the chart and agree that the record accurately reflects my personal performance of the history, physical exam, medical decision making, and the department course for this patient. I have also personally directed, reviewed, and agree with the discharge instructions and disposition. Disposition - Clinical Impression Clinical Impression: URI (upper respiratory infection) - Patient ED Disposition Is Patient to be Admitted: No Counseled Patient/Family Regarding: Studies Performed, Diagnosis, Need For Followup, Rx Given - Disposition Referrals: LTAC[facility] [Outside] - 07/28/17 Disposition: Routine/Home Disposition Time: : Condition: STABLE Additional Instructions: Return if not better in 3 days. Prescriptions: Ibuprofen [Motrin] 600 mg PO TID 7 Days Instructions: Upper Respiratory Infection (ED) Forms: [employer] (Welsh)
[2017-07-27 08:25] VITALS: PULSE 98
== END 2017-07-27 08:37 | disposition home or self-care (01) ==
LOC: H.ER 07:05
DX: J06.9 Acute upper respiratory infection, unspecified (principal); F31.9 Bipolar disorder, unspecified; F41.9 Anxiety disorder, unspecified; Z88.0 Allergy status to penicillin

== ENCOUNTER 2017-07-27 10:56 | Emergency (ER) | payer OTHER ==
[2017-07-27 11:05] VITALS: TEMP 98; O2SAT 97
[2017-07-27] MEDS ORDERED: Lidocaine 1% Inj (20ml) ONE (11:32)
[2017-07-27] MEDS ORDERED: Lidocaine 1% w Epi 1:100,000 Inj ONE (11:33)
[2017-07-27] MEDS ORDERED: Povidone Iodine Topical 10% Sol ONE (11:37)
--- NOTE | 2017-07-27 12:01 | ED PDOC ---
Upper Extremity Pain/Injury Time Seen by Provider: 07/27/17 11:20 Chief Complaint (Nursing): Upper Extremity Problem/Injury Chief Complaint (Provider): right arm laceration History Per: Patient Additional Complaint(s): 37 year old right hand dominant male presents to ED with laceration to right arm sustained this morning when he was taking out garbage and a piece of glass cut his arm. He applied pressure dressing and came to ED. Patient states tetanus is up to date. He has mild pain to affected area and denies any numbness or tingling to affected area. Patient denies any foreign body sensation. Past Medical History Reviewed: Historical Data, Nursing Documentation, Vital Signs Vital Signs: Last Vital Signs Temp 98.0 F 07/27/17 11:05 Pulse 107 H 07/27/17 11:05 Resp 20 07/27/17 11:05 BP 133/99 H 07/27/17 11:05 Pulse Ox 97 07/27/17 11:05 - Medical History PMH: Anxiety, Asthma, Back Problems, Bipolar Disorder, Depression, Seizures - Surgical History Surgical History: No Surg Hx - Family History Family History: States: No Known Family Hx - Living Arrangements Living Arrangements: With Family - Social History Current smoker - smoking cessation education provided: No Alcohol: None Drugs: Opiates (heroin) - Immunization History Hx Tetanus Toxoid Vaccination: Yes (last booster was 6 months ago) Hx Influenza Vaccination: No Hx Pneumococcal Vaccination: No - Home Medications Home Medications: Ambulatory Orders Medication Instructions Recorded Albuterol HFA [Ventolin HFA 90 2 puff IH Q4H PRN 03/15/17 mcg/actuation (8 g)] Gabapentin [Neurontin] 800 mg PO TID 03/15/17 Methylphenidate HCl [Concerta] 36 mg PO DAILY 03/15/17 Naproxen [Anaprox DS] 550 mg PO BID PRN 03/15/17 Zolpidem [Ambien] 10 mg PO HS 03/15/17 cloNIDine [Catapres] 0.2 mg PO DAILY 03/15/17 Buprenorphine HCl/Naloxone HCl 1 film SL BID 03/24/17 [Suboxone 8 mg-2 mg Sl Film] Divalproex [Depakote ER] 500 mg PO TID 03/24/17 Ibuprofen [Motrin] 600 mg PO TID 7 Days 07/27/17 - Allergies Allergies/Adverse Reactions: Allergies Allergy/AdvReac Type Severity Reaction Status Date / Time levetiracetam [From [facility]] Allergy RASH Verified 07/27/17 07:25 Penicillins Allergy RASH Verified 07/27/17 11:10 tramadol Allergy RASH Verified 07/27/17 07:25 Review of Systems ROS Statement: Except As Marked, All Systems Reviewed And Found Negative Skin: Positive for: Other (right arm laceration) Physical Exam - Reviewed Nursing Documentation Reviewed: Yes Vital Signs Reviewed: Yes - Physical Exam Appears: Positive for: Well, Non-toxic, No Acute Distress Skin: Negative for: Rash Eye Exam: Positive for: Normal appearance Extremity: Positive for: Other (3 cm by 1 cm superficial laceration noted to palmar aspect of right forearm, no FB, mild active bleeding, normal sensation surrounding wound, normal distal sensation, 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 Patient was given detailed wound care instructions. Procedures - Laceration/Wound Repair Right arm Wound Length (cm): 2 Wound's Depth, Shape: superficial Wound Explored: clean Irrigated w/ Saline (ccs): 30 Betadine Prep?: Yes Anesthesia: Lidocaine w/ Epi Volume Anesthetic (ccs): 10 Wound Debrided: minimal Wound Repaired With: Sutures (running suture used to repair wound) Suture Size/Type: 5:0 Layer Closure?: No Wound Complexity: Simple Sterile Dressing Applied?: Yes Splint Applied?: No Progress: Patient was nodding off and falling asleep during procedure, he would not hold right arm in steady position during repair. Wound was approximated as best as possible given this circumstance. Disposition - Clinical Impression Clinical Impression: Arm laceration - Patient ED Disposition Is Patient to be Admitted: No Counseled Patient/Family Regarding: Diagnosis, Need For Followup - Disposition Referrals: [facility] [Outside] Disposition: Routine/Home Disposition Time: 12:20 Condition: STABLE Additional Instructions: KEEP WOUND CLEAN AND DRY. ADVIL NEEDED FOR PAIN. WOUND CHECK IN 2-3 DAYS. SUTURE REMOVAL IN 14 DAYS. Instructions: Care For Your Stitches (ED), Laceration (ED) Forms: [employer] (Cymro)
[2017-07-27 12:21] VITALS: BP 137/78; PULSE 90; RESP 18
[2017-07-27] MEDS ORDERED: Lidocaine 1% w Epi 1:100,000 Inj INJ STA (12:34)
[2017-07-27] MEDS ORDERED: Lidocaine/Epi 1% 1:100000 20 ML IJ STA (12:39)
== END 2017-07-27 12:15 | disposition home or self-care (01) ==
LOC: H.ER 10:56
DX: S41.111A Laceration without foreign body of right upper arm, initial encounter (principal); W25.XXXA Contact with sharp glass, initial encounter; Y92.89 Other specified places as the place of occurrence of the external cause; F31.9 Bipolar disorder, unspecified; F41.9 Anxiety disorder, unspecified; Z88.0 Allergy status to penicillin

== ENCOUNTER 2017-08-07 11:20 | Emergency (ER) | payer OTHER ==
[2017-08-07 11:26] VITALS: BP 117/71; RESP 88; TEMP 98.7
[2017-08-07 11:27] VITALS: BMI 28.7
--- NOTE | 2017-08-07 12:07 | ED PDOC ---
HPI: General Adult Time Seen by Provider: 08/07/17 11:45 Chief Complaint (Nursing): Wound Check Chief Complaint (Provider): suture removal History Per: Patient (37 y/o male here for suture removal after right arm injury 07/27/2017. Patient notes intermittent pain in left arm from injury. ) Past Medical History Reviewed: Historical Data, Nursing Documentation, Vital Signs Vital Signs: Last Vital Signs Temp 98.7 F 08/07/17 11:26 Pulse 16 L 08/07/17 11:26 Resp 88 H 08/07/17 11:26 BP 117/71 08/07/17 11:26 Pulse Ox 97 08/07/17 11:26 - Medical History PMH: Anxiety, Asthma, Back Problems, Bipolar Disorder, Depression, Seizures Denies: HIV, HTN, Chronic Kidney Disease, Sexually Transmitted Disease - Family History Family History: States: No Known Family Hx - Immunization History Hx Tetanus Toxoid Vaccination: Yes (last booster was 6 months ago) Hx Influenza Vaccination: No Hx Pneumococcal Vaccination: No - Home Medications Home Medications: Ambulatory Orders Medication Instructions Recorded Albuterol HFA [Ventolin HFA 90 2 puff IH Q4H PRN 03/15/17 mcg/actuation (8 g)] Gabapentin [Neurontin] 800 mg PO TID 03/15/17 Methylphenidate HCl [Concerta] 36 mg PO DAILY 03/15/17 Naproxen [Anaprox DS] 550 mg PO BID PRN 03/15/17 Zolpidem [Ambien] 10 mg PO HS 03/15/17 cloNIDine [Catapres] 0.2 mg PO DAILY 03/15/17 Buprenorphine HCl/Naloxone HCl 1 film SL BID 03/24/17 [Suboxone 8 mg-2 mg Sl Film] Divalproex [Depakote ER] 500 mg PO TID 03/24/17 Ibuprofen [Motrin] 600 mg PO TID 7 Days 07/27/17 - Allergies Allergies/Adverse Reactions: Allergies Allergy/AdvReac Type Severity Reaction Status Date / Time levetiracetam [From [facility]] Allergy RASH Verified 07/27/17 07:25 Penicillins Allergy RASH Verified 07/27/17 11:10 tramadol Allergy RASH Verified 07/27/17 07:25 Review of Systems ROS Statement: Except As Marked, All Systems Reviewed And Found Negative Physical Exam - Reviewed Nursing Documentation Reviewed: Yes Vital Signs Reviewed: Yes - Physical Exam Appears: Positive for: Well, Non-toxic, No Acute Distress Head Exam: Positive for: ATRAUMATIC, NORMAL INSPECTION, NORMOCEPHALIC Skin: Positive for: Normal Color, Warm, DRY Eye Exam: Positive for: EOMI, Normal appearance, PERRL ENT: Positive for: Normal ENT Inspection Neck: Positive for: Normal, Painless ROM Cardiovascular/Chest: Positive for: Regular Rate, Rhythm Respiratory: Positive for: CNT, Normal Breath Sounds Gastrointestinal/Abdominal: Positive for: Normal Exam, Bowel Sounds, Soft Back: Positive for: Normal Inspection Extremity: Positive for: Normal ROM, Other (Healing Sutured wound right medial proximal forearm.) Neurologic/Psych: Positive for: Alert, Oriented - ECG O2 Sat by Pulse Oximetry: 97 - Progress ED Course And Treament: Suture removed without difficulty. Wound dehiscensce mild noted. Steri strips placed. repeat pulse 77 O2 99% R12 Disposition - Clinical Impression Clinical Impression: Visit for suture removal - Patient ED Disposition Is Patient to be Admitted: No - Disposition Referrals: Obed Francisco MD [Staff Provider] - Disposition: Routine/Home Disposition Time: 12:08 Condition: FAIR Instructions: Stitches Removal (ED) Forms: [employer] (Lao)
[2017-08-07 12:17] VITALS: PULSE 77; O2SAT 99
== END 2017-08-07 12:15 | disposition home or self-care (01) ==
LOC: H.ER 11:20
DX: Z48.02 Encounter for removal of sutures (principal)

== ENCOUNTER 2017-10-25 11:04 | Emergency (ER) | payer OTHER ==
[2017-10-25 11:04] VITALS: BMI 28.7
[2017-10-25 11:51] VITALS: BP 125/69; PULSE 93; RESP 18; TEMP 97; O2SAT 98
--- NOTE | 2017-10-25 12:57 | ED PDOC ---
HPI: Head Injury Time Seen by Provider: 10/25/17 12:08 Chief Complaint (Nursing): Trauma Chief Complaint (Provider): Fall, Head injury History Per: Patient History/Exam Limitations: no limitations Injury Occurred (Timing): Just Before Arrival Patient States: Fell Striking Head Loss Of Consciousness: No Additional Complaint(s): Vinay Babb is a 37-year-old male who presents to the ED for evaluation of a head injury sustained after he fell earlier today. He states that while cleaning an exterior window of a house, he fell face first off of the ladder hitting head against the ground. Patient also sustained minor skin avulsion to right thumb. His last Tetanus was approximately 6 months ago. Patient denies any loss of consciousness, nausea, vomiting, changes in vision, or dizziness. He was seen at [facility] just prior to arrival, where he was treated for the right thumb avulsion, and referred to the ED for further evaluation of head injury. PMD: None Past Medical History Reviewed: Historical Data, Nursing Documentation, Vital Signs Vital Signs: Last Vital Signs Temp 97 F L 10/25/17 11:47 Pulse 93 H 10/25/17 11:47 Resp 18 10/25/17 11:47 BP 125/69 10/25/17 11:47 Pulse Ox 98 10/25/17 11:47 - Medical History PMH: Anxiety, Asthma, Back Problems, Bipolar Disorder, Depression, Seizures (on Depakote) - Surgical History Surgical History: No Surg Hx - Family History Family History: States: No Known Family Hx - Living Arrangements Living Arrangements: With Family - Social History Current smoker - smoking cessation education provided: Yes Alcohol: None Drugs: Denies - Immunization History Hx Tetanus Toxoid Vaccination: Yes (last booster was 6 months ago) Hx Influenza Vaccination: No Hx Pneumococcal Vaccination: No - Home Medications Home Medications: Ambulatory Orders Medication Instructions Recorded Albuterol HFA [Ventolin HFA 90 2 puff IH Q4H PRN 03/15/17 mcg/actuation (8 g)] Gabapentin [Neurontin] 800 mg PO TID 03/15/17 Methylphenidate HCl [Concerta] 36 mg PO DAILY 03/15/17 Naproxen [Anaprox DS] 550 mg PO BID PRN 03/15/17 Zolpidem [Ambien] 10 mg PO HS 03/15/17 cloNIDine [Catapres] 0.2 mg PO DAILY 03/15/17 Buprenorphine HCl/Naloxone HCl 1 film SL BID 03/24/17 [Suboxone 8 mg-2 mg Sl Film] Divalproex [Depakote ER] 500 mg PO TID 03/24/17 Ibuprofen [Motrin] 600 mg PO TID 7 Days tab 07/27/17 - Allergies Allergies/Adverse Reactions: Allergies Allergy/AdvReac Type Severity Reaction Status Date / Time levetiracetam [From [facility]] Allergy RASH Verified 07/27/17 07:25 Penicillins Allergy RASH Verified 07/27/17 11:10 tramadol Allergy RASH Verified 07/27/17 07:25 Review of Systems ROS Statement: Except As Marked, All Systems Reviewed And Found Negative Eyes: Negative for: Vision Change Gastrointestinal: Negative for: Nausea, Vomiting Neurological: Positive for: Other (head injury with no LOC). Negative for: Weakness, Numbness, Dizziness Physical Exam - Reviewed Nursing Documentation Reviewed: Yes Vital Signs Reviewed: Yes - Physical Exam Appears: Positive for: Non-toxic, No Acute Distress Head Exam: Negative for: ATRAUMATIC (contusion to right side of forehead, abrasion to upper lip with no active bleeding, dentition intact) Skin: Positive for: Normal Color, Warm, Dry Eye Exam: Positive for: EOMI, Normal appearance, PERRL Neck: Positive for: Normal, Painless ROM Cardiovascular/Chest: Positive for: Regular Rate, Rhythm. Negative for: Murmur Respiratory: Negative for: Respiratory Distress Extremity: Positive for: Normal ROM, Other (1 cm skin avulsion to the distal aspect of right thumb, no active bleeding, fingernail intact) Neurologic/Psych: Positive for: Alert, Oriented (x3). Negative for: Motor/ Sensory Deficits - ECG O2 Sat by Pulse Oximetry: 98 (RA) Pulse Ox Interpretation: Normal Medical Decision Making Medical Decision Making: Initial Impression: 37 year old with head injury and skin avulsion to right thumb s/p fall Time: 12:50 Initial Plan: * CT Head w/o contrast ordered * Patient offered pain medication, and declined Patient was transported to CT and while at CT, he decided to refuse all imaging and further treatment. Patient is requesting to leave ED. He was informed that he will need to sign out against medical advice and he agreed to do so. Leaving Against Medical Advice (AMA): This patient is choosing to leave against medical advice. The EP has personally explained to the pt that choosing to do so may result in permanent bodily harm or . The EP discussed at great length that without further evaluation and monitoring there may be unforeseen circumstances and/or deterioration causing permanent bodily harm or as a result of their choice. The pt verbalized these risks back to the physician in laymans terms. The pt is alert, oriented, and shows the mental capacity to make clear decisions regarding the pts health care at this time. The pt continues to wish to leave against medical advice. The pt has been advised that they should return to the ED immediately if they change their mind at any time, or if their condition begins to change or worsen in any way. Scribe Attestation: Documented by Kadie Obrien, acting as a scribe for Agustina Bolden PA-C. Provider Scribe Attestation: All medical record entries made by the Scribe were at my direction and personally dictated by me. I have reviewed the chart and agree that the record accurately reflects my personal performance of the history, physical exam, medical decision making, and the department course for this patient. I have also personally directed, reviewed, and agree with the discharge instructions and disposition. Disposition - Clinical Impression Clinical Impression: Head injury, Skin avulsion, Left against medical advice - Patient ED Disposition Is Patient to be Admitted: No - Disposition Disposition: Against Medical Advice (patient left against medical advice, verbal instructions given but patient refused to sign AMA form) Disposition Time: 18:02 Condition: UNKNOWN Instructions: Head Injury (ED), Skin Avulsion (ED), Against Medical Advice (ED) Forms: [employer] (Macedonian), [facility] ED AMA
== END 2017-10-25 15:45 | disposition left against medical advice (07) ==
LOC: H.ER 11:04
DX: S09.90XA Unspecified injury of head, initial encounter (principal); S60.311A Abrasion of right thumb, initial encounter; W19.XXXA Unspecified fall, initial encounter; Y92.89 Other specified places as the place of occurrence of the external cause; F31.9 Bipolar disorder, unspecified; F41.9 Anxiety disorder, unspecified; J45.909 Unspecified asthma, uncomplicated; Z88.0 Allergy status to penicillin